=== PATIENT | female | born 1980 | race Caucasian/White ===

== ENCOUNTER 2016-08-26 13:40 | Emergency (ER) ==
[2016-08-26 14:46] VITALS: BP 132/77
--- NOTE | 2016-08-26 15:40 | Diag Imaging Result Document ---
PROCEDURE NAME: KNEE 3 VIEWS LEFT - 08/26/2016 LEFT KNEE, THREE VIEWS: FINDINGS: Knee joint space is well maintained. There is no evidence of acute fracture or dislocation. IMPRESSION: No acute disease.
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
== END 2016-08-26 17:31 | disposition home or self-care (01) ==
LOC: ED 13:40
DX: M25.562 Pain in left knee (principal)
CPT/HCPCS: 99283